=== PATIENT | male | born 1990 | race Caucasian/White ===

== ENCOUNTER 2018-12-10 09:09 | Emergency (ER) | payer OTHER ==
[2018-12-10 09:13] VITALS: BP 134/87; PULSE 106; TEMP 99.1; BMI 25.0
[2018-12-10] MEDS ORDERED: ACETAMINOPHEN 325 MG TABLET (FP) PO ONE (09:39)
[2018-12-10] MEDS ORDERED: ACETAMINOPHEN 325 MG TABLET (FP) ONE (09:45)
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
== END 2018-12-10 10:14 | disposition home or self-care (01) ==
LOC: JERFT 09:09
DX: R52 Pain, unspecified (principal); M79.10 Myalgia, unspecified site; X58.XXXA Exposure to other specified factors, initial encounter; Y93.89 Activity, other specified; Y92.512 Supermarket, store or market as the place of occurrence of the external cause; F17.210 Nicotine dependence, cigarettes, uncomplicated; F99 Mental disorder, not otherwise specified
CPT/HCPCS: 99281-25

== ENCOUNTER 2019-10-20 16:13 | Emergency (ER) | payer OTHER ==
[2019-10-20 17:09] VITALS: BP 97/56; PULSE 111; TEMP 101.8; BMI 23.5
[2019-10-20] MEDS ORDERED: IBUPROFEN 600 MG TABLET (FP) PO ONE (17:10)
--- NOTE | 2019-10-20 17:10 | PDOC ---
Rapid Medical Evaluation Time Seen by Provider: 10/20/19 17:05 Medical Evaluation: Allergies Allergy/AdvReac Type Severity Reaction Status Date / Time No Known Allergies Allergy Verified 10/20/19 17:05 10/20/19 17:05 Pt c/o: uri s/s x 2 days, no meds taken Pt on brief exam: febrile and tachy Pt ordered for: motrin and flu pt to proceed to the ED Discharge Disposition - Diagnosis Fever, Influenza - Discharge Dispostion Disposition: HOME Condition at time of disposition: Stable - Prescriptions Prescriptions: Oseltamivir Phosphate [Tamiflu] 75 mg PO BID #10 capsule - Referrals Referrals: Dheeraj Meade MD [Primary Care Provider] - - Patient Instructions Additional Instructions: Tylenol Motrin as directed for fever and body aches. Return to the emergency room for worsening symptoms and without fail follow-up with your primary care physician in 1 to 2 days for further evaluation and treatment options. Please take the Tamiflu as directed. - Post Discharge Activity
--- NOTE | 2019-10-20 18:38 | PDOC ---
History of Present Illness - General Chief Complaint: Cold Symptoms Stated Complaint: FEVER Time Seen by Provider: 10/20/19 17:05 - History of Present Illness Initial Comments: 10/20/19 18:37 29-year-old male with a past medical history of anxiety presents for flulike symptoms x1 day also with a sore throat Past History - Past Medical History Allergies/Adverse Reactions: Allergies Allergy/AdvReac Type Severity Reaction Status Date / Time No Known Allergies Allergy Verified 10/20/19 17:05 Home Medications: Ambulatory Orders Ibuprofen 600 mg PO ACDIN 7 Days #21 tablet 12/10/18 Oseltamivir Phosphate [Tamiflu] 75 mg PO BID #10 capsule 10/20/19 Sertraline HCl [Zoloft -] 50 mg PO DAILY 10/20/19 Anemia: No Asthma: No Cancer: No Cardiac Disorders: No CVA: No COPD: No CHF: No Dementia: No Diabetes: No GI Disorders: Yes (HEMORRHOIDS) Disorders: No HTN: No Hypercholesterolemia: No Liver Disease: No Psychiatric Problems: Yes Seizures: No Thyroid Disease: No - Surgical History Abdominal Surgery: No Appendectomy: No Cardiac Surgery: No Cholecystectomy: No Lung Surgery: No Neurologic Surgery: No Orthopedic Surgery: No - Immunization History Td Vaccination: Yes (2008) Immunization Up to Date: Yes - Psycho Social/Smoking Cessation Hx Smoking Status: Yes Smoking History: Never smoked Have you smoked in the past 12 months: Yes Number of Cigarettes Smoked Daily: 1 'Breaking Loose' booklet given: 10/26/15 Hx Alcohol Use: Yes (OCCASIONAL-BEERS/WINE) Drug/Substance Use Hx: Yes Substance Use Type: Alcohol, Marijuana Hx Substance Use Treatment: No Review of Systems - Review of Systems Constitutional: Yes: Chills, Fever, Malaise, Night Sweats HEENTM: Yes: Nose Congestion, Throat Pain Respiratory: Yes: Cough *Physical Exam - Vital Signs Last Vital Signs Temp Pulse Resp BP Pulse Ox 101.8 F H 111 H 18 97/56 L 98 10/20/19 17:05 10/20/19 17:05 10/20/19 17:05 10/20/19 17:05 10/20/19 17:05 - Physical Exam 10/20/19 18:38 GENERAL: The patient is awake, alert, and fully oriented, in no acute distress. HEAD: Normal with no signs of trauma. EYES: sclera anicteric, conjunctiva clear. ENT: Ears normal tympanic membranes normal oropharynx clear uvula midline NECK: Normal range of motion LUNGS: Breath sounds equal, clear to auscultation bilaterally. No wheezes, and no crackles. HEART: S1 and S2 without murmur, rub or gallop. ABDOMEN: Soft, nontender, normoactive bowel sounds. No guarding, no rebound. No masses. EXTREMITIES: Normal range of motion, no edema. No clubbing or cyanosis. No cords, erythema, or tenderness. NEUROLOGICAL: Cranial nerves II through XII grossly intact. PSYCH: Normal mood, normal affect. SKIN: Warm, Dry, normal turgor, no rashes or lesions noted. ED Treatment Course - Medications Given in the ED: ED Medications Discontinued Medications Generic Name Dose Route Start Last Admin Trade Name Freq PRN Reason Stop Dose Admin Ibuprofen 600 mg 10/20/19 17:10 10/20/19 17:14 Motrin - PO 10/20/19 17:11 600 mg ONCE ONE Administration Medical Decision Making - Medical Decision Making 10/20/19 18:40 Tamiflu for influenza Tylenol Motrin for supportive care Discharge - Discharge Information Problems reviewed: Yes Clinical Impression/Diagnosis: Fever, Influenza Condition: Stable Disposition: HOME - Admission No - Additional Discharge Information Prescriptions: Oseltamivir Phosphate [Tamiflu] 75 mg PO BID #10 capsule - Follow up/Referral Referrals: Dheeraj Meade MD [Primary Care Provider] - - Patient Discharge Instructions Additional Instructions: Tylenol Motrin as directed for fever and body aches. Return to the emergency room for worsening symptoms and without fail follow-up with your primary care physician in 1 to 2 days for further evaluation and treatment options. Please take the Tamiflu as directed. - Post Discharge Activity
== END 2019-10-20 18:49 | disposition home or self-care (01) ==
LOC: JERFT 16:13
DX: J10.1 Influenza due to other identified influenza virus with other respiratory manifestations (principal); F99 Mental disorder, not otherwise specified; K64.9 Unspecified hemorrhoids
CPT/HCPCS: 87804; 99282-25

== ENCOUNTER 2022-04-05 08:12 | Emergency (ER) | payer OTHER ==
[2022-04-05 08:31] VITALS: BP 124/79; PULSE 110; TEMP 100; BMI 28.1
== END 2022-04-05 08:59 | disposition home or self-care (01) ==
LOC: JER 08:12
DX: B34.9 Viral infection, unspecified (principal)
CPT/HCPCS: 0241U-QW; 99283-25

== ENCOUNTER 2023-03-26 19:39 | Emergency (ER) | payer OTHER ==
[2023-03-26 19:50] VITALS: BP 148/82; TEMP 98.6; BMI 28.1
[2023-03-26 20:30] LABS: THROAT:GRP A STREP NOT DETECTED (NOTDETECTED)
[2023-03-26] MEDS ORDERED: IBUPROFEN 600 MG TABLET (FP) PO ONE ×2 (20:58→20:59)
[2023-03-26 21:06] VITALS: PULSE 98; RESP 18
== END 2023-03-26 21:07 | disposition home or self-care (01) ==
LOC: JERFT 19:39 → JER 19:39 → JERFT 21:07
DX: R09.89 Other specified symptoms and signs involving the circulatory and respiratory systems (principal); R07.0 Pain in throat; J06.9 Acute upper respiratory infection, unspecified; B97.89 Other viral agents as the cause of diseases classified elsewhere; Z20.822 Contact with and (suspected) exposure to COVID-19
CPT/HCPCS: 0241U-QW; 87651; 99283-25

== ENCOUNTER 2023-09-14 17:04 | Emergency (ER) | payer OTHER ==
[2023-09-14 17:16] VITALS: BMI 28.1
[2023-09-14] MEDS ORDERED: ACETAMINOPHEN 500 MG TABLET (FP) PO ONE (18:05)
[2023-09-14] MEDS ORDERED: IBUPROFEN 600 MG TABLET (FP) PO ONE ×2 (18:05→18:31)
[2023-09-14] MEDS ORDERED: ACETAMINOPHEN 500 MG TABLET (FP) ONE (18:31)
[2023-09-14] MEDS ORDERED: SODIUM CHLORIDE 0.9% 500 ML INFUS.BAG IV ONE (19:37)
[2023-09-14 21:26] VITALS: BP 133/88; PULSE 116; RESP 20; TEMP 99.9
== END 2023-09-14 21:35 | disposition home or self-care (01) ==
LOC: JER 17:04 → JERFT 17:04
DX: J10.1 Influenza due to other identified influenza virus with other respiratory manifestations (principal); Z20.822 Contact with and (suspected) exposure to COVID-19
CPT/HCPCS: 0241U-QW; 99283-25